=== PATIENT | female | born 1955 | race African-American/Black ===

== ENCOUNTER 2018-02-16 10:14 | Emergency (ER) | payer OTHER ==
[~2018-02-16] VITALS: Ht 165.1 cm; Wt 83.6 kg
[2018-02-16 10:20] VITALS: BP 123/82
--- NOTE | 2018-02-16 10:30 | NUR ---
PT AMB TO BED 7
--- NOTE | 2018-02-16 10:32 | NUR ---
Note undone in EDM - 02/16/18 at 1203 by [email or web address] 62/F BIB SELF WITH C/O FATIGUE WITH SLIGHT DIZZINESS, GEN BODY ACHE X 3 DAYS; DENIES LORENZ OR N/V/D. HX; HTN, HEP C, RT HIP REPLACEMENT 10/28/2014 & HYSTERECTOMY. RX; AMLOPIDINE. SKIN IS PINK/WARM/DRY; AAOX4 WITH EVEN AND STEADY GAIT; LUNGS CLEAR BL; HR EVEN AND REGULAR; PT DENIES ANY FEVER, CP, SOB, OR COUGH AT THIS TIME; PATIENT STATES PAIN OF 8/10 AT THIS TIME; VSS; PATIENT POSITIONED FOR COMFORT; HOB ELEVATED; BEDRAILS UP X2; BED DOWN. ER MD MADE AWARE OF PT STATUS.
--- NOTE | 2018-02-16 10:41 | NUR ---
Dr. Ford evaluating patient at bedside.
[2018-02-16] MEDS ORDERED: NACL 0.9% 1,000 ML IV ONE (11:00)
--- NOTE | 2018-02-16 11:26 | NUR ---
X RAY AT BEDSIDE.
[2018-02-16 11:36] LABS: BASOPHILS % (AUTO) 0.3 % (0.0-2.0); EOSINOPHILS # (AUTO) 0.2 K/uL (0-0.4); EOSINOPHILS % (AUTO) 4.2 % (0.0-4.0); HEMATOCRIT 42.8 % (36-48); HEMOGLOBIN 14.6 g/dL (12.0-16.0); LYMPHOCYTES # (AUTO) 2.1 K/uL (2.5-16.5); LYMPHOCYTES % (AUTO) 53.9 % (20.5-51.1); MEAN CORPUSCULAR HEMOGLOBIN 33 pg (27-31); MEAN CORPUSCULAR HGB CONC 34 g/dL (33-37); MEAN CORPUSCULAR VOLUME 97.6 fL (80-94); MONOCYTES # (AUTO) 0.4 K/uL (0.8-1.0); MONOCYTES % (AUTO) 11.5 % (1.7-9.3); NEUTROPHILS # (AUTO) 1.2 K/uL (1.8-7.7); NEUTROPHILS % (AUTO) 30.1 % (42.2-75.2); PLATELET COUNT (AUTO) 249 K/uL (140-450); RED BLOOD CELL COUNT(AUTO) 4.39 MIL/uL (4.20-5.40); RED CELL DISTRIBUTION WIDTH 12.9 % (11.6-13.7); WHITE BLOOD COUNT (AUTO) 3.9 K/uL (4.8-10.8)
[2018-02-16 11:47] LABS: APPEARANCE,URINE CLEAR (CLEAR); BILIRUBIN,URINE 1+ (NEGATIVE); BLOOD, URINE NEGATIVE (NEGATIVE); COLOR,URINE YELLOW (YELLOW); LEUKOCYTE ESTERASE ,URINE TRACE (NEGATIVE); NITRITE, URINE NEGATIVE (NEGATIVE); UGLUCOSE NEGATIVE (NEGATIVE)
[2018-02-16 12:01] LABS: D-DIMER < 100 ng/ml (0-400)
[2018-02-16 12:02] LABS: WBC,URINE 0-5 (RARE) /HPF (0-5)
[2018-02-16 12:03] LABS: RBC,URINE NONE SEEN /HPF (0-5)
--- NOTE | 2018-02-16 12:06 | NUR ---
PT STATED " I WANT NORCO BECAUSE MOTRIN 800 MG THAT I TOOK IT ISN'T HELP". NOTIFIED DR NOLASCO.
[2018-02-16 12:07] LABS: AMYLASE 75 U/L (25-115); MAGNESIUM 1.8 mg/dL (1.8-2.4)
[2018-02-16 12:08] LABS: ACETONE, SERUM NEGATIVE (NEGATIVE); LIPASE 304 U/L (73-393)
[2018-02-16 12:10] LABS: ALBUMIN 3.7 g/dL (3.4-5.0); CREATININE 0.6 mg/dL (0.6-1.3); TOTAL BILIRUBIN 0.5 mg/dL (0.0-1.0)
--- NOTE | 2018-02-16 12:27 | NUR ---
Dr. Ford evaluating patient at bedside.
[2018-02-16 12:38] LABS: PROTHROMBIN TIME 10.7 secs (10.8-13.4)
[2018-02-16 12:49] LABS: BARBITURATE, URINE NEG. ng/ml (NEG <=200); BENZODIAZEPINE, URINE NEG. ng/mL (NEG <=200); CANNABINOID, URINE NEG. ng/mL (NEG <=50); COCAINE, URINE NEG. ng/mL (NEG <=300); OPIATE, URINE POS. ng/mL (NEG <=2000); PHENCYCLIDINE SCREEN,URINE NEG. ng/mL (NEG <=25)
[2018-02-16 13:04] VITALS: BP 122/82
--- NOTE | 2018-02-16 13:04 | NUR ---
Patient discharged with v/s stable. Written and verbal after care instructions given and explained. Patient verbalized understanding. Ambulatory with steady gait. All questions addressed prior to discharge. Advised to follow up with PMD.
== END 2018-02-16 13:04 | disposition home or self-care (01) ==
LOC: MED 10:14
DX: R53.83 Other fatigue (principal); R53.1 Weakness; R42 Dizziness and giddiness; Z86.19 Personal history of other infectious and parasitic diseases
CPT/HCPCS: 36415; 71045; 80053; 80305; 81001; 82009; 82150; 83690; 83735; 83880; 84484; 84550; 85025; 85379; 85610; 85730; 93005; 96360; 96361; 99285; Q0092; J7030

== ENCOUNTER 2018-02-23 11:28 | Day surgery (SDC) | payer OTHER ==
[~2018-02-23] VITALS: Ht 165.1 cm; Wt 84.8 kg
[2018-02-23] MEDS ORDERED: LIDOCAINE 2% 1000 MG/50 ML VIAL INJ ONE (14:07)
[2018-02-23] MEDS ORDERED: fentaNYL 0.05 MG/ML VIAL ONE (14:27)
[2018-02-23] MEDS ORDERED: ONDANSETRON 4 MG/2 ML VIAL ONE (14:37)
[2018-02-23] MEDS ORDERED: ONDANSETRON 4 MG/2 ML VIAL IVP PRN (15:05)
[2018-02-23] MEDS ORDERED: fentaNYL 0.05 MG/ML VIAL IVP ONE (15:05)
[2018-02-23] MEDS: MORPHINE SULFATE 2 MG/ML SYR IVP PRN ×3 (15:35→16:18)
[2018-02-23] MEDS ORDERED: MORPHINE SULFATE 2 MG/ML SYR IVP PRN (18:45)
[2018-02-23] MEDS ORDERED: MORPHINE SULFATE 4 MG/ML SYR IVP PRN (18:55)
== END 2018-02-23 19:40 | disposition home or self-care (01) ==
LOC: MDS 11:28 → MMU 11:29 → MDS 19:40
PROVIDERS: ATTEND Internal Medicine Gastroenterology
DX: B18.2 Chronic viral hepatitis C (principal); E66.3 Overweight; Z68.31 Body mass index [BMI] 31.0-31.9, adult; F17.210 Nicotine dependence, cigarettes, uncomplicated; Z96.641 Presence of right artificial hip joint; Z90.711 Acquired absence of uterus with remaining cervical stump; Z72.89 Other problems related to lifestyle; Z79.82 Long term (current) use of aspirin; Z79.899 Other long term (current) drug therapy
CPT/HCPCS: 47000; 76942; J2001; J2270; J2405; J3010; Q0092

== ENCOUNTER 2018-12-13 12:34 | Emergency (ER) | payer OTHER ==
[~2018-12-13] VITALS: Ht 165.1 cm; Wt 73.0 kg
[2018-12-13 12:45] VITALS: BP 132/93
--- NOTE | 2018-12-13 12:45 | NUR ---
DR NOLASCO AT BEDSIDE
--- NOTE | 2018-12-13 12:58 | NUR ---
63 Y FEMALE BIB FAMILY C/O LEFT KNEE PAIN. STATES SHE HURT IT YESTERDAY WHILE WALKING. DENIES FALL. PT WHEELCHAIRED TO ROOM 9. PAIN /. SITE TENDER TO TOUCH. -ECCHYMOSIS, -SWELLING, -ERYTHMA. +LEFT PEDAL PULSE, +CAP REFILL <3 SECONDS, -ROM OF L KNEE. VSS AT THIS TIME. PT AA0X4. BED IS DOWN, LOCKED, BED RAIL X 1, ERMD TO SEE PT
--- NOTE | 2018-12-13 13:13 | NUR ---
XRAY AT BEDSIDE
[2018-12-13] MEDS ORDERED: MORPHINE SULFATE 4 MG/ML SYR IM ONE (13:30)
[2018-12-13] MEDS ORDERED: KETOROLAC 60 MG/2 ML VIAL IM ONE (13:30)
--- NOTE | 2018-12-13 15:03 | NUR ---
VELCRO KNEE IMMOBILIZER APPLIED TO PTS L KNEE BY JAYLIN EMT. +L PEDAL PULSE. +CAP REFILL <3 SECONDS. PT VERBALIZES UNDERSTANDING OF USE FOR CRUTCHES AND SPLINT AFTER TEACHING FROM EMT
[2018-12-13 15:14] VITALS: BP 136/94
--- NOTE | 2018-12-13 15:14 | NUR ---
Patient discharged with v/s stable. Written and verbal after care instructions given and explained. Patient alert, oriented and verbalized understanding of instructions. Ambulatory with CRUTCHES. All questions addressed prior to discharge. ID band removed. Patient advised to follow up with PMD. Rx of VOLTAREN, TRAMADOL HYDROCHLORIDE given. Patient educated on indication of medication including possible reaction and side effects. Opportunity to ask questions provided and answered. PT GIVEN REFERRAL TO MD [facility] IN [place].
== END 2018-12-13 15:14 | disposition home or self-care (01) ==
LOC: MED 12:34
DX: S83.422A Sprain of lateral collateral ligament of left knee, initial encounter (principal); X50.1XXA Overexertion from prolonged static or awkward postures, initial encounter; Y93.01 Activity, walking, marching and hiking; Y92.89 Other specified places as the place of occurrence of the external cause; Y99.8 Other external cause status
CPT/HCPCS: 29505; 73562; 96372; 99283; J1885; J2270

== ENCOUNTER 2020-04-10 12:19 | Emergency (ER) | payer OTHER ==
[~2020-04-10] VITALS: Ht 165.1 cm; Wt 89.9 kg
[~2020-04-10 12:19] MED LIST: HYDR-5122 PO; LEVO500T98 PO; METR250T2 PO
[2020-04-10 12:26] VITALS: BP 118/82
[2020-04-10] MEDS ORDERED: KETOROLAC 60 MG/2 ML VIAL IM ONE (12:35)
[2020-04-10 13:22] VITALS: BP 118/82
== END 2020-04-10 13:23 | disposition home or self-care (01) ==
LOC: MED 12:19
DX: M70.52 Other bursitis of knee, left knee (principal); I10 Essential (primary) hypertension; F17.200 Nicotine dependence, unspecified, uncomplicated; Z79.899 Other long term (current) drug therapy; Z98.890 Other specified postprocedural states; Z90.710 Acquired absence of both cervix and uterus
CPT/HCPCS: 96372; 99283; J1885

== ENCOUNTER 2020-05-28 17:18 | Emergency (ER) | payer OTHER ==
[~2020-05-28] VITALS: Ht 165.1 cm; Wt 83.5 kg
[~2020-05-28 17:18] MED LIST changes: +METR-520 PO; -METR250T2 PO
[2020-05-28 17:47] VITALS: BP 153/96
[2020-05-28 18:35] LABS: BASOPHILS % (AUTO) 0.5 % (0.0-2.0); EOSINOPHILS # (AUTO) 0.1 K/uL (0-0.4); EOSINOPHILS % (AUTO) 2.4 % (0.0-4.0); HEMATOCRIT 36.8 % (36-48); HEMOGLOBIN 12.4 g/dL (12.0-16.0); LYMPHOCYTES # (AUTO) 1.9 K/uL (2.5-16.5); LYMPHOCYTES % (AUTO) 52.2 % (20.5-51.1); MEAN CORPUSCULAR HEMOGLOBIN 33 pg (27-31); MEAN CORPUSCULAR HGB CONC 34 g/dL (33-37); MEAN CORPUSCULAR VOLUME 99.1 fL (80-94); MONOCYTES # (AUTO) 0.4 K/uL (0.8-1.0); MONOCYTES % (AUTO) 11.6 % (1.7-9.3); NEUTROPHILS # (AUTO) 1.2 K/uL (1.8-7.7); NEUTROPHILS % (AUTO) 33.3 % (42.2-75.2); PLATELET COUNT (AUTO) 206 K/uL (140-450); RED BLOOD CELL COUNT(AUTO) 3.71 MIL/uL (4.20-5.40); RED CELL DISTRIBUTION WIDTH 12.8 % (11.6-13.7); WHITE BLOOD COUNT (AUTO) 3.6 K/uL (4.8-10.8)
[2020-05-28 19:03] LABS: ALBUMIN 4.1 g/dL (3.4-5.0); ANION GAP 13.6 (8-16); CARBON DIOXIDE 26.5 mmol/L (21-32); CREATININE 0.7 mg/dL (0.6-1.3); POTASSIUM 4.1 mmol/L (3.5-5.1); TOTAL BILIRUBIN 0.3 mg/dL (0.0-1.0)
[2020-05-28 19:24] VITALS: BP 153/96
--- NOTE | 2020-05-28 19:24 | NUR ---
Pt assessed and discharged by Dr Cox. No Nursing interventions performed
--- NOTE | 2020-05-28 19:25 | NUR ---
Patient discharged with v/s stable. Written and verbal after care instructions given and explained. Patient alert, oriented and verbalized understanding of instructions. Ambulatory with steady gait. All questions addressed prior to discharge. ID band removed. Patient advised to follow up with PMD. Rx of Augmentin 875mg and Flagyl 500mg given. Patient educated on indication of medication including possible reaction and side effects. Opportunity to ask questions provided and answered.
== END 2020-05-28 19:25 | disposition home or self-care (01) ==
LOC: MED 17:18
DX: K57.92 Diverticulitis of intestine, part unspecified, without perforation or abscess without bleeding (principal); I10 Essential (primary) hypertension; Z79.899 Other long term (current) drug therapy
CPT/HCPCS: 36415; 80053; 83690; 85025; 99283

== ENCOUNTER 2021-06-11 21:40 | Emergency (ER) | payer OTHER ==
[~2021-06-11] VITALS: Ht 165.1 cm; Wt 79.4 kg
[~2021-06-11 21:40] MED LIST changes: +LEVO-315 PO; -LEVO500T98 PO
[2021-06-11 21:49] VITALS: BP 142/110
--- NOTE | 2021-06-11 21:50 | NUR ---
TO LOBBY A/W BED AMBULATORY
--- NOTE | 2021-06-11 22:40 | NUR ---
SEEN AND EXamined BY MARY
[2021-06-11] MEDS ORDERED: MORPHINE SULFATE 2 MG/ML SYR IVP ONE (22:55)
[2021-06-11] MEDS ORDERED: NACL 0.9% 1,000 ML IV ONE (22:55)
[2021-06-11] MEDS ORDERED: ONDANSETRON 4 MG/2 ML VIAL IVP ONE (22:55)
[2021-06-12 00:07] LABS: ALBUMIN 4.2 g/dL (3.4-5.0); ANION GAP 14.8 (8-16); CARBON DIOXIDE 23.8 mmol/L (21-32); CREATININE 0.7 mg/dL (0.6-1.3); POTASSIUM 3.6 mmol/L (3.5-5.1); TOTAL BILIRUBIN 0.7 mg/dL (0.0-1.0)
[2021-06-12 00:30] LABS: BASOPHILS % (AUTO) 0.2 % (0.0-2.0); EOSINOPHILS % (AUTO) 0.5 % (0.0-4.0); HEMATOCRIT 43.4 % (36-48); HEMOGLOBIN 14.8 g/dL (12.0-16.0); LYMPHOCYTES # (AUTO) 0.5 K/uL (2.5-16.5); LYMPHOCYTES % (AUTO) 10.3 % (20.5-51.1); MEAN CORPUSCULAR HEMOGLOBIN 34 pg (27-31); MEAN CORPUSCULAR HGB CONC 34 g/dL (33-37); MEAN CORPUSCULAR VOLUME 98.5 fL (80-94); MONOCYTES # (AUTO) 0.2 K/uL (0.8-1.0); MONOCYTES % (AUTO) 3.8 % (1.7-9.3); NEUTROPHILS # (AUTO) 4.3 K/uL (1.8-7.7); NEUTROPHILS % (AUTO) 85.2 % (42.2-75.2); PLATELET COUNT (AUTO) 252 K/uL (140-450); RED CELL DISTRIBUTION WIDTH 12.5 % (11.6-13.7)
--- NOTE | 2021-06-12 00:48 | NUR ---
patient ambulated to chair c
[2021-06-12] MEDS ORDERED: ONDANSETRON 4 MG/2 ML VIAL ONE (00:55)
[2021-06-12] MEDS ORDERED: MORPHINE SULFATE 2 MG/ML SYR ONE (00:55)
[2021-06-12] MEDS ORDERED: ONDANSETRON 4 MG/2 ML VIAL IVP ONE (03:00)
[2021-06-12] MEDS ORDERED: MORPHINE SULFATE 2 MG/ML SYR IVP ONE (03:00)
[2021-06-12] MEDS ORDERED: PANT40EC PO (03:27)
[2021-06-12] MEDS ORDERED: ONDA-188 SL (03:27)
[2021-06-12 04:03] VITALS: BP 143/91
--- NOTE | 2021-06-12 04:03 | NUR ---
Patient discharged with v/s stable. Written and verbal after care instructions given and explained. Patient alert, oriented and verbalized understanding of instructions. Ambulatory with steady gait. All questions addressed prior to discharge. ID band removed. Patient advised to follow up with PMD. Rx of zofran odt and protonix given. Patient educated on indication of medication including possible reaction and side effects. Opportunity to ask questions provided and answered.
== END 2021-06-12 04:03 | disposition home or self-care (01) ==
LOC: MED 21:40
DX: R10.9 Unspecified abdominal pain (principal); R50.9 Fever, unspecified; R11.10 Vomiting, unspecified; I10 Essential (primary) hypertension
CPT/HCPCS: 36415; 74177; 80053; 83605; 83690; 84484; 85025; 87040; 93005; 96361; 96374; 96375; 96376; 99285; J2270; J2405; J7030; Q9967

== ENCOUNTER → 2022-12-26 22:46 | Emergency (ER) | payer OTHER ==
[~2022-12-26 22:46] MED LIST changes: -LEVO-315 PO; +LEVO-481 PO; +ONDA-188 SL; +PANT40EC PO
--- NOTE | 2022-12-26 22:46 | NUR ---
PT CALLED BY KORY LAIRD FOR EXAM. NO ANSWER
--- NOTE | 2022-12-26 23:00 | NUR ---
PT CALLED FOR EXAM BY KORY LAIRD. NO ANSWER
--- NOTE | 2022-12-26 23:05 | NUR ---
PT CALLED BY KORY LAIRD FOR EXAM. NO ANSWER.
--- NOTE | 2022-12-26 23:09 | NUR ---
PATIENT LEFT WITHOUT BEING SEEN BY KORY LAIRD. NO FURTHER CARE PROVIDED FOR PATIENT.
== END | disposition left against medical advice (07) ==
LOC: MED 22:46
DX: R20.0 Anesthesia of skin (principal); Z53.21 Procedure and treatment not carried out due to patient leaving prior to being seen by health care provider

== ENCOUNTER 2022-12-26 23:19 | Emergency (ER) | payer OTHER ==
[~2022-12-26] VITALS: Ht 165.1 cm; Wt 78.9 kg
[2022-12-26 23:22] VITALS: BP 150/90; PULSE 73; RESP 17; TEMP 97.8; O2SAT 97
--- NOTE | 2022-12-26 23:25 | NUR ---
TO LOBBY A/W BED AMBULATORY
[2022-12-27 00:07] LABS: BASOPHILS % (AUTO) 0.4 % (0.0-2.0); EOSINOPHILS # (AUTO) 0.2 K/uL (0-0.4); HEMATOCRIT 38.9 % (36-48); HEMOGLOBIN 13.1 g/dL (12.0-16.0); MEAN CORPUSCULAR HEMOGLOBIN 33 pg (27-31); MEAN CORPUSCULAR HGB CONC 34 g/dL (33-37); MONOCYTES # (AUTO) 0.6 K/uL (0.8-1.0); MONOCYTES % (AUTO) 11.1 % (1.7-9.3); NEUTROPHILS # (AUTO) 1.7 K/uL (1.8-7.7); NEUTROPHILS % (AUTO) 31.5 % (42.2-75.2); PLATELET COUNT (AUTO) 241 K/uL (140-450); RED BLOOD CELL COUNT(AUTO) 3.93 MIL/uL (4.20-5.40); RED CELL DISTRIBUTION WIDTH 12.8 % (11.6-13.7); WHITE BLOOD COUNT (AUTO) 5.5 K/uL (4.8-10.8)
[2022-12-27 00:20] LABS: ANION GAP 11.8 (8-16); CARBON DIOXIDE 26.3 mmol/L (21-32); CREATININE 0.7 mg/dL (0.6-1.3); POTASSIUM 4.1 mmol/L (3.5-5.1)
[2022-12-27] MEDS ORDERED: KETOROLAC 30 MG/ML VIAL IM ONE (01:00)
[2022-12-27] MEDS ORDERED: CYCLOBENZAPRINE 10 MG TAB PO ONE (01:00)
[2022-12-27 01:38] VITALS: BP 150/90; PULSE 73; RESP 17; TEMP 97.8; O2SAT 97
== END 2022-12-27 01:38 | disposition home or self-care (01) ==
LOC: MED 23:19
DX: R20.0 Anesthesia of skin (principal); I10 Essential (primary) hypertension; Z79.899 Other long term (current) drug therapy
CPT/HCPCS: 36415; 80048; 85025; 93005; 96372; 99284; J1885

== ENCOUNTER 2023-04-08 11:31 | Emergency (ER) | payer OTHER ==
[~2023-04-08] VITALS: Ht 167.6 cm; Wt 72.6 kg
[2023-04-08 11:42] VITALS: BP 113/81; PULSE 85; RESP 18; TEMP 98.1; O2SAT 98
[2023-04-08 12:23] VITALS: BP 113/81; PULSE 85; RESP 18; TEMP 98.1
[2023-04-08 12:46] LABS: BASOPHILS % (AUTO) 0.5 % (0.0-2.0); EOSINOPHILS # (AUTO) 0.1 K/uL (0-0.4); HEMATOCRIT 39.8 % (36-48); HEMOGLOBIN 13.5 g/dL (12.0-16.0); LYMPHOCYTES # (AUTO) 1.5 K/uL (2.5-16.5); LYMPHOCYTES % (AUTO) 38.5 % (20.5-51.1); MEAN CORPUSCULAR HEMOGLOBIN 33 pg (27-31); MEAN CORPUSCULAR HGB CONC 34 g/dL (33-37); MEAN CORPUSCULAR VOLUME 98.5 fL (80-94); MONOCYTES # (AUTO) 0.4 K/uL (0.8-1.0); MONOCYTES % (AUTO) 9.6 % (1.7-9.3); NEUTROPHILS # (AUTO) 1.9 K/uL (1.8-7.7); NEUTROPHILS % (AUTO) 49.4 % (42.2-75.2); PLATELET COUNT (AUTO) 283 K/uL (140-450); RED BLOOD CELL COUNT(AUTO) 4.04 MIL/uL (4.20-5.40); RED CELL DISTRIBUTION WIDTH 12.7 % (11.6-13.7); WHITE BLOOD COUNT (AUTO) 3.9 K/uL (4.8-10.8)
[2023-04-08] MEDS ORDERED: ONDANSETRON 4 MG/2 ML VIAL IVP ONE (13:20)
[2023-04-08] MEDS ORDERED: MORPHINE SULFATE 4 MG/ML SYR IVP ONE (13:20)
[2023-04-08] MEDS ORDERED: NACL 0.9% 1,000 ML IV ONE (13:20)
[2023-04-08 13:29] LABS: ALANINE AMINOTRANSFERASE 15 U/L (12-78); ALKALINE PHOSPHATASE 69 U/L (50-136); ANION GAP 14.8 (8-16); ASPARTATE AMINOTRANSFERASE 18 U/L (15-37); CALCIUM 9.6 mg/dL (8.5-10.1); CARBON DIOXIDE 25.2 mmol/L (21-32); CHLORIDE 103 mmol/L (98-107); CREATININE 0.8 mg/dL (0.6-1.3); GFR ARICAN-AMERICAN 93 mL/min (>90); GFR NON ARICAN-AMERICAN 77 mL/min (>90); GLUCOSE 102 mg/dL (74-106); LIPASE 59 U/L (16-77); SODIUM SERUM 139 mmol/L (136-145); TOTAL BILIRUBIN 0.7 mg/dL (0.0-1.0); TOTAL PROTEIN, SERUM 8.1 g/dL (6.4-8.2); UREA NITROGEN, BLOOD 22 mg/dL (7-18)
[2023-04-08 13:50] VITALS: O2SAT 98
[2023-04-08 14:49] LABS: BILIRUBIN,URINE 2+ (NEGATIVE); BLOOD, URINE NEGATIVE (NEGATIVE); LEUKOCYTE ESTERASE ,URINE TRACE (NEGATIVE); NITRITE, URINE NEGATIVE (NEGATIVE); PROTEIN,URINE 1+ (NEGATIVE); UGLUCOSE NEGATIVE (NEGATIVE)
[2023-04-08 14:51] LABS: APPEARANCE,URINE SLIGHTLY CLOUDY (CLEAR)
[2023-04-08 14:52] LABS: COLOR,URINE ORANGE (YELLOW)
[2023-04-08 15:02] LABS: ICTOTEST NEGATIVE (NEGATIVE)
[2023-04-08 15:03] LABS: BACTERIA,URINE 10-30 (MOD) /HPF (None Seen); RBC,URINE 0-5 /HPF (0-5); SQUAMOUS EPITHELIAL CELL,UR 4-10 (MOD) /LPF (0-3 (FEW))
[2023-04-08] MEDS ORDERED: MIRABULK PO (15:15)
[2023-04-08] MEDS ORDERED: CIPR500T4 PO (15:15)
[2023-04-08] MEDS ORDERED: METR-435 PO (15:15)
== END 2023-04-08 15:25 | disposition home or self-care (01) ==
LOC: MED 11:31
DX: K57.92 Diverticulitis of intestine, part unspecified, without perforation or abscess without bleeding (principal); I10 Essential (primary) hypertension; Z79.899 Other long term (current) drug therapy
CPT/HCPCS: 36415; 74176; 80053; 81001; 83690; 84484; 85025; 87086; 93005; 96361; 96374; 96375; 99285; J2270; J2405; J7030

== ENCOUNTER 2023-08-27 13:16 | Emergency (ER) | payer OTHER ==
[~2023-08-27] VITALS: Ht 165.1 cm; Wt 73.7 kg
[~2023-08-27 13:16] MED LIST changes: +CIPR500T4 PO; +METR-435 PO; +MIRABULK PO
[2023-08-27 13:31] VITALS: BP 120/86; PULSE 75; RESP 17; TEMP 98.5; O2SAT 97
[2023-08-27 14:36] LABS: APPEARANCE,URINE CLEAR (CLEAR); BILIRUBIN,URINE NEGATIVE (NEGATIVE); BLOOD, URINE NEGATIVE (NEGATIVE); COLOR,URINE YELLOW (YELLOW); LEUKOCYTE ESTERASE ,URINE NEGATIVE (NEGATIVE); NITRITE, URINE NEGATIVE (NEGATIVE); PROTEIN,URINE NEGATIVE (NEGATIVE); UGLUCOSE NEGATIVE (NEGATIVE); UROBILINOGEN,URINE 0.2 EU/dL (0.2 - 1)
[2023-08-27] MEDS: ONDANSETRON 4 MG/2 ML VIAL IVP ONE (15:21)
[2023-08-27] MEDS: KETOROLAC 30 MG/ML VIAL IVP ONE (15:22)
[2023-08-27] MEDS: MORPHINE SULFATE 4 MG/ML SYR IVP ONE (15:23)
[2023-08-27 15:35] LABS: BASOPHILS % (AUTO) 0.5 % (0.0-2.0); EOSINOPHILS # (AUTO) 0.1 K/uL (0-0.4); EOSINOPHILS % (AUTO) 2.4 % (0.0-4.0); HEMATOCRIT 37.8 % (36-48); HEMOGLOBIN 13.1 g/dL (12.0-16.0); LYMPHOCYTES # (AUTO) 1.1 K/uL (2.5-16.5); LYMPHOCYTES % (AUTO) 35.6 % (20.5-51.1); MEAN CORPUSCULAR HEMOGLOBIN 34 pg (27-31); MEAN CORPUSCULAR HGB CONC 35 g/dL (33-37); MEAN CORPUSCULAR VOLUME 98.8 fL (80-94); MONOCYTES # (AUTO) 0.6 K/uL (0.8-1.0); MONOCYTES % (AUTO) 18.2 % (1.7-9.3); NEUTROPHILS # (AUTO) 1.3 K/uL (1.8-7.7); NEUTROPHILS % (AUTO) 43.3 % (42.2-75.2); PLATELET COUNT (AUTO) 243 K/uL (140-450); RED BLOOD CELL COUNT(AUTO) 3.83 MIL/uL (4.20-5.40); WHITE BLOOD COUNT (AUTO) 3.1 K/uL (4.8-10.8)
[2023-08-27 16:22] LABS: ANION GAP 15.7 (8-16); CALCIUM 9.1 mg/dL (8.5-10.1); CARBON DIOXIDE 22.9 mmol/L (21-32); CREATININE 0.7 mg/dL (0.6-1.3); POTASSIUM 3.6 mmol/L (3.5-5.1)
[2023-08-27 16:28] LABS: ALBUMIN 3.9 g/dL (3.4-5.0); BILIRUBIN,DIRECT 0.1 mg/dL (0.0-0.3); TOTAL BILIRUBIN 0.3 mg/dL (0.0-1.0); TOTAL PROTEIN, SERUM 7.9 g/dL (6.4-8.2)
[2023-08-27] MEDS ORDERED: DOCU-299 PO (16:45)
[2023-08-27] MEDS ORDERED: POLY17PD72 PO (16:45)
[2023-08-27] MEDS ORDERED: BISA-218 RC (16:45)
== END 2023-08-27 17:11 | disposition home or self-care (01) ==
LOC: MED 13:16
DX: M54.17 Radiculopathy, lumbosacral region (principal); R10.9 Unspecified abdominal pain; Z79.899 Other long term (current) drug therapy
CPT/HCPCS: 36415; 74176; 80048; 80076; 81003; 83690; 85025; 96374; 96375; 99285; J1885; J2270; J2405

== ENCOUNTER 2023-12-02 04:45 | Emergency (ER) | payer OTHER ==
[~2023-12-02] VITALS: Ht 165.1 cm; Wt 74.4 kg
[~2023-12-02 04:45] MED LIST changes: +BISA-279 RC; +DOCU-299 PO; +POLY17PD72 PO
[2023-12-02] MEDS ORDERED: MORPHINE SULFATE 4 MG/ML SYR ONE (05:55)
[2023-12-02] MEDS ORDERED: ONDANSETRON 4 MG/2 ML VIAL ONE (05:55)
[2023-12-02 06:26] VITALS: BP 132/76; PULSE 98; RESP 16; TEMP 97.6; O2SAT 98
[2023-12-02 07:26] LABS: BASOPHILS % (AUTO) 0.1 % (0.0-2.0); HEMATOCRIT 37.6 % (36-48); LYMPHOCYTES # (AUTO) 0.9 K/uL (2.5-16.5); LYMPHOCYTES % (AUTO) 8.7 % (20.5-51.1); MEAN CORPUSCULAR HEMOGLOBIN 34 pg (27-31); MEAN CORPUSCULAR HGB CONC 35 g/dL (33-37); MEAN CORPUSCULAR VOLUME 98.5 fL (80-94); MONOCYTES # (AUTO) 0.8 K/uL (0.8-1.0); MONOCYTES % (AUTO) 6.9 % (1.7-9.3); NEUTROPHILS # (AUTO) 9.2 K/uL (1.8-7.7); NEUTROPHILS % (AUTO) 84.3 % (42.2-75.2); PLATELET COUNT (AUTO) 228 K/uL (140-450); RED BLOOD CELL COUNT(AUTO) 3.81 MIL/uL (4.20-5.40); RED CELL DISTRIBUTION WIDTH 12.5 % (11.6-13.7)
[2023-12-02 07:50] LABS: ANION GAP 19.5 (8-16); CALCIUM 9.2 mg/dL (8.5-10.1); CARBON DIOXIDE 20.5 mmol/L (21-32); CREATININE 0.9 mg/dL (0.6-1.3)
[2023-12-02 07:54] LABS: ALBUMIN 3.7 g/dL (3.4-5.0); BILIRUBIN,DIRECT 0.2 mg/dL (0.0-0.3); TOTAL BILIRUBIN 0.8 mg/dL (0.0-1.0)
[2023-12-02 08:44] LABS: BILIRUBIN,URINE NEGATIVE (NEGATIVE); BLOOD, URINE TRACE-I (NEGATIVE); COLOR,URINE YELLOW (YELLOW); LEUKOCYTE ESTERASE ,URINE 1+ (NEGATIVE); PH,URINE 6.5 (5.0-9.0); PROTEIN,URINE 2+ (NEGATIVE); UGLUCOSE NEGATIVE (NEGATIVE); UROBILINOGEN,URINE 0.2 EU/dL (0.2 - 1)
[2023-12-02 08:45] LABS: APPEARANCE,URINE SLIGHTLY HAZY (CLEAR)
[2023-12-02 08:47] LABS: BACTERIA,URINE 1+ /HPF (None Seen); RBC,URINE 0-5 /HPF (0-5); SQUAMOUS EPITHELIAL CELL,UR 0-3 (FEW) /LPF (0-3 (FEW)); WBC,URINE 20-60 /HPF (0-5)
[2023-12-02 08:48] LABS: NITRITE, URINE POSITIVE (NEGATIVE)
[2023-12-02] MEDS ORDERED: ACET-10509 PO (09:02)
[2023-12-02] MEDS ORDERED: IBUP-2218 PO (09:02)
[2023-12-02] MEDS ORDERED: CEPH-588 PO (09:02)
[2023-12-02] MEDS ORDERED: PHEN-1593 PO (09:02)
[2023-12-02 09:31] VITALS: BP 136/85; PULSE 80; RESP 17; TEMP 98.3; O2SAT 98
== END 2023-12-02 09:36 | disposition home or self-care (01) ==
LOC: ECOV 04:45
DX: N39.0 Urinary tract infection, site not specified (principal); Z79.1 Long term (current) use of non-steroidal anti-inflammatories (NSAID); Z79.2 Long term (current) use of antibiotics; Z79.899 Other long term (current) drug therapy
CPT/HCPCS: 36415; 74176; 80048; 80076; 81001; 85025; 87086; 99284; J2270; J2405

== ENCOUNTER 2024-03-30 14:23 | Emergency (ER) | payer OTHER ==
[~2024-03-30] VITALS: Ht 165.1 cm; Wt 71.3 kg
[~2024-03-30 14:23] MED LIST changes: +ACET500T99 PO; +CEPH-588 PO; +IBUP-2218 PO; +PHEN-1593 PO
[2024-03-30 14:39] VITALS: BP 142/91; PULSE 71; RESP 18; TEMP 97.5; O2SAT 100
[2024-03-30] MEDS: MORPHINE SULFATE 10 MG/ML VIAL IVP ONE (16:10)
[2024-03-30] MEDS: KETOROLAC 30 MG/ML VIAL IVP ONE (16:10)
[2024-03-30] MEDS: ACETAMINOPHEN EXTRA STRENGTH 500 MG TAB PO ONE (16:11)
[2024-03-30] MEDS: methocarbamoL 500 MG TAB PO ONE (16:11)
[2024-03-30] MEDS ORDERED: METH-1681 PO (17:34)
[2024-03-30 17:53] VITALS: BP 134/76; PULSE 74; RESP 18; TEMP 98.2; O2SAT 98
== END 2024-03-30 17:55 | disposition home or self-care (01) ==
LOC: MED 14:23
DX: M54.12 Radiculopathy, cervical region (principal); I10 Essential (primary) hypertension; Z79.899 Other long term (current) drug therapy
CPT/HCPCS: 96374; 96375; 99285; J1885; J2270

== ENCOUNTER 2024-04-06 17:11 | Emergency (ER) | payer OTHER ==
[~2024-04-06] VITALS: Ht 165.1 cm; Wt 72.6 kg
[~2024-04-06 17:11] MED LIST changes: +METH-1681 PO
[2024-04-06 17:41] VITALS: BP 120/92; PULSE 97; RESP 20; TEMP 97.3; O2SAT 100
[2024-04-06 17:55] VITALS: O2SAT 100
[2024-04-06] MEDS: ACETAMINOPHEN 325 MG TAB PO ONE (18:48)
[2024-04-06] MEDS: KETOROLAC 30 MG/ML VIAL IM ONE (18:49)
[2024-04-06 19:20] LABS: APPEARANCE,URINE CLEAR (CLEAR); BILIRUBIN,URINE 2+ (NEGATIVE); BLOOD, URINE NEGATIVE (NEGATIVE); COLOR,URINE YELLOW (YELLOW); LEUKOCYTE ESTERASE ,URINE 1+ (NEGATIVE); NITRITE, URINE NEGATIVE (NEGATIVE); PROTEIN,URINE TRACE (NEGATIVE); UGLUCOSE NEGATIVE (NEGATIVE)
[2024-04-06 19:50] LABS: BACTERIA,URINE 10-30 (MOD) /HPF (None Seen); CALCIUM OXALATE CRYSTALS,UR 0-10 /HPF (None Seen); RBC,URINE 0-5 /HPF (0-5)
[2024-04-06 19:51] LABS: ICTOTEST NEGATIVE (NEGATIVE)
[2024-04-06] MEDS ORDERED: DICL20GE TP (20:27)
[2024-04-06] MEDS: cephALEXin 500 MG CAP PO ONE (20:31)
[2024-04-06] MEDS: MORPHINE SULFATE 4 MG/ML SYR IM ONE (20:31)
[2024-04-06 20:53] VITALS: BP 120/92; PULSE 97; RESP 20; TEMP 97.3; O2SAT 100
[2024-04-07] MEDS ORDERED: NITR100C7 PO (10:29)
== END 2024-04-06 20:54 | disposition home or self-care (01) ==
LOC: MED 17:11
DX: N39.0 Urinary tract infection, site not specified (principal); M54.12 Radiculopathy, cervical region; I10 Essential (primary) hypertension; Z79.899 Other long term (current) drug therapy
CPT/HCPCS: 72050; 73030; 81001; 87086; 96372; 99284; J1885; J2270